=== PATIENT | male | born 1950 | race Hispanic/Latino ===

== ENCOUNTER 2024-08-03 08:47 | Emergency (ER) | payer OTHER ==
--- NOTE | 2024-08-03 09:51 | RAD REPORT ---
EXAMINATION: UPPER EXTREMITY VENOUS UNILATE CLINICAL INDICATION: Right arm pain TECHNIQUE: Complete bilateral duplex sonography of the right upper extremity veins was performed. The examination included compression for vein patency, color Doppler imaging and flow augmentation in response to distal compression of the internal jugular,, subclavian, axillary, brachial, radial, ulna r, cephalic and basilic veins. .Grayscale, color and spectral analysis performed on all vessels COMPARISON: No prior exam. FINDINGS: The internal jugular, subclavian, axillary, brachial, basilic, cephalic, radial and ulnar veins are g enerally compressible and demonstrate augmentation. Color Doppler demonstrates good flow. IMPRESSION: No evidence of venous thrombus involving the right upper extremity
--- NOTE | 2024-08-03 09:55 | RAD REPORT ---
Exam:Forearm Right Clinical history: Right forearm pain Findings: No fracture or dislocation seen. No bone or joint abnormalities displayed. Vascular calcifications are present
--- NOTE | 2024-08-03 09:58 | ER ---
Nurse's Notes [facility] Name: Presley Teran Age: 74 yrs Sex: Male : 1950 Arrival Date: 08/03/2024 Time: 08:47 Bed 12 Private MD: Diagnosis: Cellulitis of right upper limb Presentation: 08/03 08:57 Chief complaint: Patient states: Pt reports that a car tire fell onto his R forearm ss sustaining an abrasion. Pt reports today he is concerned because he is having some discomfort to his R elbow down to his fingers. Coronavirus screen: Client denies travel out of the [place] in the last 14 days. Ebola Screen: Patient denies exposure to infectious person. Patient denies travel to an Ebola-affected area in the 21 days before illness onset. Initial Sepsis Screen: Does the patient meet any 2 criteria? No. Patient's initial sepsis screen is negative. Does the patient have a suspected source of infection? No. Patient's initial sepsis screen is negative. Risk Assessment: Do you want to hurt yourself or someone else? Patient reports no desire to harm self or others. Onset of symptoms was July 28, 2024. 08:57 Method Of Arrival: Ambulatory ss 08:57 Acuity: SABINE 3 ss Historical: - Allergies: 08:59 No Known Allergies; ss - PMHx: 08:59 Hypertensive disorder; ss - Immunization history:: Last tetanus immunization: unknown. - Infectious Disease History:: Denies. - Social history:: Smoking status: Patient denies any tobacco usage or history of. Screenin:59 Abuse screen: Denies threats or abuse. Denies injuries from another. Nutritional ss screening: No deficits noted. Tuberculosis screening: Never had TB. Assessment: 08:59 General: Appears in no apparent distress. comfortable, Behavior is calm, cooperative. ss Pain: Complains of pain in right elbow, R fingers. Neuro: Level of Consciousness is awake, alert, obeys commands, Oriented to person, place, time, situation. Cardiovascular: Pulses are palpable in right radial artery and left radial artery. Respiratory: Airway is patent Respiratory effort is even, unlabored, Respiratory pattern is regular, symmetrical. : No signs and/or symptoms were reported regarding the genitourinary system. Derm: abrasion noted to posterior aspect of R FA. No drainage noted. Pt denies pain to that particular area. Musculoskeletal: Swelling present in right elbow. 09:04 Reassessment: Pt to US at this time VIA wheelchair. ss 10:00 Reassessment: Patient appears in no apparent distress at this time. No changes from ss previously documented assessment. Patient is alert, oriented x 3, equal unlabored respirations, skin warm/dry/pink. Vital Signs: 08:57 BP 144 / 91; Pulse 80; Resp 16; Temp 97.9(TE); Pulse Ox 98% on R/A; Weight 81.65 kg; ss Height 5 ft. 4 in. ; Pain 6/10; 08:57 Body Mass Index 30.90 (81.65 kg, 162.56 cm) ss 08:57 Pain Scale: Adult ss ED Course: 08:50 Patient arrived in ED. im 08:50 [facility]reg[facility] sb4 08:50 Aren Fischer MD is Attending Physician. sb4 08:59 Triage completed. ss 08:59 Arm band placed on right wrist. ss 08:59 Patient has correct armband on for positive identification. Bed in low position. Warm ss blanket given. 09:19 UPPER EXTREMITY VENOUS UNILATE In Process Unspecified. EDMS 09:29 Barbara Adorno, RN is Primary Nurse. ss 09:42 Forearm Right XRAY In Process Unspecified. EDMS 10:08 No provider procedures requiring assistance completed. Patient did not have IV access ss during this emergency room visit. Administered Medications: No medications were administered Medication: 08:59 VIS not applicable for this client. Outcome: 09:58 Discharge ordered by . sb4 10:08 Discharged to home ambulatory, ss 10:08 Condition: good 10:08 Discharge instructions given to patient, Instructed on discharge instructions, follow up and referral plans. medication usage, Demonstrated understanding of instructions, follow-up care, medications, Prescriptions given X 2, 10:08 No charge visit due to call back/ED request. 10:09 Patient left the ED. Signatures: Dispatcher [employer] EDMS Barbara Adorno, RN RN Feli Purvis PA-C PA-C sb4 Elodia Monroy im
--- NOTE | 2024-08-03 09:58 | EDPHYS ---
Physician Documentation [facility] Name: Presley Teran Age: 74 yrs Sex: Male : 1950 Arrival Date: 08/03/2024 Time: 08:47 Bed 12 Private MD: ED Physician Aren Fischer HPI: 08/03 09:04 This 74 yrs old Male presents to ER via Ambulatory with complaints of Arm sb4 Injury - Right. 09:04 Patient states that he dropped a tire on his right forearm about 1 week ago. States sb4 that it is not healing well and now he has pain throughout his entire right arm. Denies any fever or chills. No nausea, vomiting, diarrhea. Historical: - Allergies: 08:59 No Known Allergies; ss - PMHx: 08:59 Hypertensive disorder; ss - Immunization history:: Last tetanus immunization: unknown. - Infectious Disease History:: Denies. - Social history:: Smoking status: Patient denies any tobacco usage or history of. ROS: 09:04 Constitutional: Negative for fever, chills, and weight loss, sb4 09:04 Skin: Positive for erythema, swelling, of the dorsal aspect of right forearm, 09:04 All other systems are negative, Exam: 09:04 Constitutional: This is a well developed, well nourished patient who is awake, alert, sb4 and in no acute distress. Head/Face: Normocephalic, atraumatic. Eyes: Extra-ocular motions intact. Periorbital areas with no swelling, redness, or edema. ENT: Mucous membranes moist. Respiratory: No increased work of breathing, no retractions or nasal flaring. 09:04 Musculoskeletal/extremity: Circulation is intact in all extremities. Pulses: are normal with no appreciated deficits, Sensation intact. 09:04 Skin: cellulitis, that is mild, on the right elbow, injury, abrasion(s), small abrasion noted, of the dorsal aspect of right forearm, Vital Signs: 08:57 BP 144 / 91; Pulse 80; Resp 16; Temp 97.9(TE); Pulse Ox 98% on R/A; Weight 81.65 kg; ss Height 5 ft. 4 in. ; Pain 6/10; 08:57 Body Mass Index 30.90 (81.65 kg, 162.56 cm) ss 08:57 Pain Scale: Adult ss MDM: 08:55 Medical Screening Exam initiated sb4 09:57 Data reviewed: vital signs, nurses notes, radiologic studies, and as a result, I will sb4 discharge patient. Counseling: I had a detailed discussion with the patient and/or guardian regarding the historical points, exam findings, and any diagnostic results supporting the discharge/admit diagnosis, radiology results, the need for outpatient follow up, for definitive care, to return to the emergency department if symptoms worsen or persist or if there are any questions or concerns that arise at home. 08/03 09:00 Order name: Forearm Right XRAY; Complete Time: 09:57 sb4 08/03 09:09 Order name: UPPER EXTREMITY VENOUS UNILATE; Complete Time: 09:52 EDMS Administered Medications: No medications were administered Disposition: 10:26 Co-signature as Attending Physician, Aren Fischer MD I reviewed the patient's care rn provided by the Advanced Practice Provider and agree with the diagnosis and treatment plan. Disposition Summary: 08/03/24 09:58 Discharge Ordered Notes: Location: Home sb4 Problem: new sb4 Symptoms: are unchanged sb4 Condition: Stable sb4 Diagnosis - Cellulitis of right upper limb sb4 Followup: sb4 - With: Emergency Department - When: As needed - Reason: Fever > 102 F, Worsening of condition Discharge Instructions: - Discharge Summary Sheet sb4 - Cellulitis, Adult sb4 Forms: - Antibiotic Education sb4 - Patient Portal Instructions sb4 - Leadership Thank You Letter sb4 Prescriptions: - Cephalexin 500 mg Oral Capsule - take 1 capsule ORAL route every 8 hours for 10 days; 30 capsule; Refills: 0, sb4 Product Selection Permitted - Ibuprofen 600 mg Oral Tablet - take 1 tablet ORAL route every 6 hours As needed take with food; 30 tablet; sb4 Refills: 0, Product Selection Permitted Signatures: Dispatcher [employer] EDMS Aren Fischer MD MD rn Blanchard, Shelby, RN RN ss Brown, Sophia, PA-C PA-C sb4 Corrections: (The following items were deleted from the chart) 09: 09:00 Extremity Venous Uni [email or web address] ordered. EDMS EDMS
[2024-08-03 10:22] VITALS: BP 144/91; TEMP 97.9; O2SAT 98
== END 2024-08-03 10:09 | disposition home or self-care (01) ==
LOC: ER 08:47
DX: L03.113 Cellulitis of right upper limb (principal)
CPT/HCPCS: 93971